=== PATIENT | male | born 1980 | race Caucasian/White ===

== ENCOUNTER 2022-03-01 09:48 | Emergency (ER) | payer SELFPAY ==
--- NOTE | 2022-03-01 | ECG_ITS ---
Test Reason : CHEST PAIN Blood Pressure : / mmHG Vent. Rate : 077 BPM Atrial Rate : 077 BPM P-R Int : 172 ms QRS Dur : 098 ms QT Int : 372 ms P-R-T Axes : 063 094 074 degrees QTc Int : 420 ms Normal sinus rhythm Rightward axis ST elevation consider inferolateral injury or acute infarct ACUTE OK / STEMI Abnormal ECG No previous ECGs available Referred By: Barrett Bean Electronically Signed By:Linwood Cantu
--- NOTE | ~2022-03-01 | XR_ITS ---
EXAMINATION: XR CHEST CLINICAL INFORMATION: Chest pain COMPARISON: None TECHNIQUE: 2 views of the chest were obtained. FINDINGS: No significant abnormality is noted involving the heart, lungs, mediastinum, bony thorax or soft tissues. XR/XR chest 2V IMPRESSION: Unremarkable examination.
[2022-03-01 09:52] VITALS: BP 130/80; PULSE 76; RESP 16; TEMP 36.4; O2SAT 100; BMI 21.7
[2022-03-01 10:06] LABS: MANUAL DIFF FLAG NO
[2022-03-01 10:08] LABS: Basophils Percent Auto 0.3 % (0-2); Eosinophils Absolute Auto 0.4 X10*3/uL (0.0-0.4); Eosinophils Percent Auto 4.2 % (0-4); Hematocrit 46.5 % (42.0-52.0); Hemoglobin 15.6 g/dl (14.0-18.0); Imm Gran Abs Auto 0.02 X10*3/uL (0.00-0.03); Imm Gran Pct Auto 0.2 % (0.0-0.4); Lymphocytes Absolute Auto 1.2 X10*3/uL (1.2-4.9); Mean Corpuscular HGB Conc 33.5 g/dl (31.0-36.0); Mean Corpuscular Hemoglobin 30.2 pg (27.0-33.0); Mean Corpuscular Volume 89.9 fL (80.0-98.0); Mean Platelet Volume 9.3 fL (9.4-12.4); Monocytes Absolute Auto 0.8 X10*3/uL (0.1-1.2); Monocytes Percent Auto 8.5 % (2-11); Neutrophils Absolute Auto 7.2 x10*3/uL (2.0-8.3); Neutrophils Percent Auto 74.8 % (45-73); Platelet Count 276 X10*3/uL (160-400); Red Blood Count 5.17 X10*6/uL (4.60-5.80); Red Cell Distribution Width 12.4 % (11.0-16.0); White Blood Count 9.6 X10*3/uL (4.8-10.8)
--- NOTE | 2022-03-01 10:15 | ED_ITS ---
HPI - Chest Pain General Chief Complaint: Chest Pain Stated Complaint: chest pain Time Seen by Provider: 03/01/22 10:06 Source: patient Limitations: no limitations History of Present Illness HPI narrative: This is a 41-year-old male complains of chest pain across his upper chest that began last night around the time he was going to bed. The patient said the pain was not severe but was ?annoying? and caused him to have difficulty sleeping. Said the pain is somewhat better now, is about a 1/10. He said it was never much more than that. He denies any shortness of breath. He denies any pain upon taking a deep breath. He denies any unusual exertion or lifting yesterday. He denies any nausea, sweats, radiation of pain to his arm or back. He has no family history of myocardial infarction. He has no history of diabetes mellitus , hypertension, elevated cholesterol. He is not a smoker. Related Data Previous Rx's Medication Instructions Recorded ibuprofen 800 mg tablet 800 mg PO Q8H #30 tab 03/01/22 Allergies Allergy/AdvReac Type Severity Reaction Status Date / Time No Known Allergies Allergy Verified 10/26/20 14:41 Review of Systems Review of Systems: Yes all other systems are reviewed and are negative Constitutional: Constitutional: Reports as per HPI and Denies fever(s) Eyes: Eyes: Reports no additional eye complaints ENT: Reports system reviewed and no additional complaints, except as documented Cardiovascular: Cardiovascular: Reports as per HPI, Denies palpitations and Denies dyspnea Respiratory: Respiratory: Reports as per HPI and Denies dyspnea Gastrointestinal: Gastrointestinal: Denies nausea Genitourinary: Genitourinary: Reports no additional male genitourinary complaints Musculoskeletal: Musculoskeletal: Reports no additional musculoskeletal complaints Integumentary/Breasts: Skin/Breast: Reports system reviewed and no additional complaints, except as docu and Reports other (No sweats) Neurologic: Reports system reviewed and no additional complaints, except as documented Endocrine: Endocrine: Denies palpitations PMFSH Past Medical History Medical History (Updated 03/01/22 @ 16:05 by Barrett Bean MD) No known health problems Social History Social History Smoked in Last 30 Days: No Use of substances other than those prescribed or required for medical reasons: No Advance Directives: No Advance Directives Information Provided: No Physical Exam Vital Signs: Vital Signs: Last Vital Signs Temp 98.1 F 03/01/22 15:16 Pulse 78 03/01/22 15:16 Resp 20 03/01/22 15:16 BP 120/73 03/01/22 15:16 Pulse Ox 99 03/01/22 15:16 BMI result Body Mass Index 21.7 Const: General: cooperative and healthy appearing Orientation/consciousness: patient oriented x3 HEENT: Head: Yes normal to inspection Eyes: General: appearance normal, both eyes and all related structures Chest: Chest palpation & inspection: normal inspection of the chest, normal palpation of entire chest wall and no tenderness Resp: Effort & Inspection: normal respiratory effort Auscultation: clear to auscultation bilaterally Cardio: Rate: regular rate Rhythm: regular rhythm Heart sounds: S1 normal heart sound present, S2 normal heart sound present, no gallops, no murmurs and no rubs GI: Inspection: Yes normal to inspection and No obesity Palpation (GI): Soft to palpation and nontender Skin: Other: Warm and dry Neuro: General: patient oriented x3 MDM - Chest Pain MDM Narrative Medical decision making narrative: Patient with pain in his upper chest, which began last night and continued mildly all night long, keeping him up. No radiation of the pain. No associated nausea, sweats, shortness of breath. No risk factors for coronary artery disease. Patient denied cocaine use, appeared well clinically, is not overweight. EKG showed diffuse ST elevation, concave upward, raising concern for STEMI, however the appearance in my opinion appear to be more consistent with pericarditis. Troponin x2 were negative. EKG was unchanged upon repeat exam. Chest x-ray was negative. Patient had a stat echocardiogram done as recommended by Dr. Kennedy of Cardiology. I also had spoken to the interventional cardiology team at [facility], who reviewed the EKGs, and felt that evaluation with the echocardiogram here would be ap propriate. Echo was normal. Dr. Kennedy has evaluated the patient in the ED and believes the patient likely has pericarditis and is safe for outpatient treatment, with ibuprofen. Lab Data Attestation: I reviewed the patient's lab results. Result diagrams: 03/01/22 10:01 03/01/22 10:01 Labs: Lab Results 03/01/22 03/01/22 03/01/22 Range/Units 10:01 10:01 10:01 WBC 9.6 (4.8-10.8) X10*3/uL RBC 5.17 (4.60-5.80) X10*6/uL Hgb 15.6 (14.0-18.0) g/dl Hct 46.5 (42.0-52.0) % MCV 89.9 (80.0-98.0) fL MCH 30.2 (27.0-33.0) pg MCHC 33.5 (31.0-36.0) g/dl RDW 12.4 (11.0-16.0) % Plt Count 276 (160-400) X10*3/uL MPV 9.3 L (9.4-12.4) fL Immature Gran % (Auto) 0.2 (0.0-0.4) % Neut % (Auto) 74.8 H (45-73) % Lymph % (Auto) 12.0 L (20-40) % [place] % (Auto) 8.5 (2-11) % Eos % (Auto) 4.2 H (0-4) % Baso % (Auto) 0.3 (0-2) % Lymph # (Auto) 1.2 (1.2-4.9) X10*3/uL [place] # (Auto) 0.8 (0.1-1.2) X10*3/uL Eos # (Auto) 0.4 (0.0-0.4) X10*3/uL Baso # (Auto) 0.0 (0.0-0.2) X10*3/uL Abs Immat Gran (auto) 0.02 (0.00-0.03) X10*3/uL Absolute Neuts (auto) 7.2 (2.0-8.3) x10*3/uL Absolute Nucleated RBC 0.000 (0.0-0.012) X10*3/uL Nucleated RBC % (auto) 0.0 (0.0-0.2) /100WBC D-Dimer High Sensitivty NG/ML Sodium 138 (135-145) mmol/L Potassium 4.5 (3.3-5.1) mmol/L Chloride 105 (96-108) mmol/L Carbon Dioxide 29 (22-29) mmol/L Anion Gap 9 L (12-20) BUN 10 (9-16) mg/dL Creatinine 0.92 (0.5-1.4) mg/dL Estim Creat Clear Calc 110.7 Estimated GFR > 60 Random Glucose 98 (60-115) mg/dL Calcium 9.5 (8.4-10.2) mg/dL Troponin I High Sens 15.1 (<3.5-35.0) ng/L 03/01/22 03/01/22 Range/Units 10:21 11:34 WBC (4.8-10.8) X10*3/uL RBC (4.60-5.80) X10*6/uL Hgb (14.0-18.0) g/dl Hct (42.0-52.0) % MCV (80.0-98.0) fL MCH (27.0-33.0) pg MCHC (31.0-36.0) g/dl RDW (11.0-16.0) % Plt Count (160-400) X10*3/uL MPV (9.4-12.4) fL Immature Gran % (Auto) (0.0-0.4) % Neut % (Auto) (45-73) % Lymph % (Auto) (20-40) % [place] % (Auto) (2-11) % Eos % (Auto) (0-4) % Baso % (Auto) (0-2) % Lymph # (Auto) (1.2-4.9) X10*3/uL [place] # (Auto) (0.1-1.2) X10*3/uL Eos # (Auto) (0.0-0.4) X10*3/uL Baso # (Auto) (0.0-0.2) X10*3/uL Abs Immat Gran (auto) (0.00-0.03) X10*3/uL Absolute Neuts (auto) (2.0-8.3) x10*3/uL Absolute Nucleated RBC (0.0-0.012) X10*3/uL Nucleated RBC % (auto) (0.0-0.2) /100WBC D-Dimer High Sensitivty < 150 NG/ML Sodium (135-145) mmol/L Potassium (3.3-5.1) mmol/L Chloride (96-108) mmol/L Carbon Dioxide (22-29) mmol/L Anion Gap (12-20) BUN (9-16) mg/dL Creatinine (0.5-1.4) mg/dL Estim Creat Clear Calc Estimated GFR Random Glucose (60-115) mg/dL Calcium (8.4-10.2) mg/dL Troponin I High Sens 15.6 (<3.5-35.0) ng/L Imaging Data Chest x-ray: Radiologist's impression: IMPRESSION: Unremarkable examination. ECG Data ECG #1: Attestation: I personally reviewed and interpreted this ECG as follows: ECG interpretation date: 03/01/22 ECG interpretation time: 09:57 Prior ECG tracings: not available for review Interpretation: Sinus rhythm with a rate of 77. Concave upward ST elevation in lead V2 through V6, consistent with early repolarization. J-point elevation in leads 2 3 and AVF with associated slight ST elevation. Slight AL depression noted in leads 2 3 and AVF. Right axis deviation. T-wave inversion lead aVL. ECG #2: ECG interpretation date: 03/01/22 ECG interpretation time: 11:38 Interpretation: Sinus rhythm with a rate of 75. ST elevation diffusely, concave upward in the anterior leads. Apparent J-point elevation in leads 2 and AVF with AL depression noted especially in lead 2 and 3 in AVF. More subtle AL depression n oted in the anterior leads. EKG appears unchanged from prior 1 today. Discharge Plan Discharge Clinical Impression: Acute pericarditis Patient Disposition: Home, Self-Care Instructions: Acute Pericarditis (ED) Additional Instructions: Use ibuprofen as prescribed. Follow with your primary care physician, or with Dr. Kennedy if he advised follow-up with him. Return for any new or worse nargis symptoms such as shortness of breath, worsening chest pain, dizzy spells or fainting episodes. Prescriptions: New ibuprofen 800 mg tablet 800 mg PO Q8H Qty: 30 0RF
[2022-03-01 10:19] VITALS: BP 110/68; PULSE 76; RESP 16; O2SAT 100
[2022-03-01] MEDS: Aspirin 81 MG TAB.CHEW 324 MG PO (10:19)
[2022-03-01 10:34] LABS: Anion Gap 9 (12-20); Blood Urea Nitrogen 10 mg/dL (9-16); Calcium 9.5 mg/dL (8.4-10.2); Carbon Dioxide 29 mmol/L (22-29); Chloride 105 mmol/L (96-108); Creatinine Clr Calc Pharmacy 110.7; Estimated Glomerular Filt Rate > 60; Glucose Random 98 mg/dL (60-115); Potassium 4.5 mmol/L (3.3-5.1); Sodium 138 mmol/L (135-145)
[2022-03-01 10:36] LABS: Troponin-I High Sensitivity 15.1 ng/L (<3.5-35.0)
[2022-03-01 10:51] LABS: D Dimer High Sensitivity < 150 NG/ML
--- NOTE | 2022-03-01 11:29 | ECG_ITS ---
Test Reason : REPEAT Blood Pressure : / mmHG Vent. Rate : 075 BPM Atrial Rate : 075 BPM P-R Int : 174 ms QRS Dur : 096 ms QT Int : 368 ms P-R-T Axes : 054 093 070 degrees QTc Int : 410 ms Normal sinus rhythm Rightward axis ST elevation that could be from pericarditis Abnormal ECG No previous ECGs available Referred By: Barrett Bean Electronically Signed By:PARAG KAN
[2022-03-01 12:07] LABS: Troponin-I High Sensitivity 15.6 ng/L (<3.5-35.0)
--- NOTE | 2022-03-01 12:12 | CA_ITS ---
Transthoracic Echocardiogram Patient (Last, First, Middle): Wilman Hyatt, Gender: Male Date of : 1980 Age: 41 Procedure Date: 03/01/2022 Procedure Type: Transthoracic Echocardiogram Location: ER Height: 185.42 cm Weight: 74.84 kg BSA: 1.98 m2 Heart Rate: bpm BP: 122 / 77 mmHg [employer] Officer: TO Referring MD: Barrett Bean MD Symptoms: CP abn EKG Study Quality: Good ECG Rhythm: Sinus Conclusions: - The left ventricular systolic function is normal. The calculated ejection fraction is 60% by biplane method. - No obvious valvular pathology seen on this study. Findings Left Ventricle Normal left ventricular cavity size. There is normal left ventricular wall thickness. The left ventricular systolic function is normal. The calculated ejection fraction is 60% by biplane method. There is no evidence of regional wall motion abnormalities. Diastolic function is normal for age. Right Ventricle Normal right ventricular cavity size and systolic function. Atria Both atria are normal in size. Aortic Valve The aortic valve was not well visualized. There is no aortic valve stenosis. There is no aortic valve regurgitation. Mitral Valve The mitral valve appears normal. There is no mitral valve regurgitation. There is no mitral valve stenosis. Pulmonic Valve The pulmonic valve was not well visualized. Tricuspid Valve Normal tricuspid valve structure. There is no tricuspid valve regurgitation. The right ventricular systolic pressure may be underestimated. Great Vessels The aortic annulus, sinuses of valsalva, and asc aorta are normal in size. Venous The inferior vena cava is normal in size and collapses greater than 50% with inspiration. Pericardium/Pleural There is no evidence of pericardial effusion. Prior Study Comparison No prior study available for comparison. Recommendations, Care & Conclusions No obvious valvular pathology seen on this study. Measurements 2D Linear Measurements IVSd: 0.83 0.6-0.9/0.6-1.0 cm LVIDd: 4.92 3.9-5.3/4.2-5.9 cm LVIDd Index: 2.48 2.4-3.2/2.2-3.1 cm/m2 LVIDs: 2.96 2.0-3.6 cm LVPWd: 0.85 0.7-1.1 cm LA Diam: 2.70 2.7-3.8/3.0-4.0 cm LAIDs Index: 1.36 1.5-2.3 cm/m2 LV Mass: 174.59 67-162/88-224 g LV Mass Index: 88.18 43-95/49-115 g/m2 LVOT Diam: 2.20 3.0+(-)1.3 cm 2D Systolic Function EF 4C: 55.30 >55% EF 2C: 62.40 >55% EF BiP: 60.00 >55% Mitral Valve MV Pk E: 0.58 MV PK A: 0.48 MV Decel Time: 198.00 E/A: 1.20 E'Lateral: 18.40 E'Medial: 11.50 E/E' Med: 5.10 E/E' Lat: 3.20 PHT: 58.00 MVA PHT: 3.79 Decel Orange: 2.94 Aortic Valve AoV Pk Ric: 1.42 AoV Mn Ric: 0.98 AoV VTI: 0.27 AoV Pk Grad: 8.00 Aov Mn Grad: 4.00 PAUL Cont.VTI: 2.85 LVOT LVOT Pk Ric: 1.07 LVOT Mn Ric: 0.74 LVOT VTI: 0.20 LVOT Pk Grad: 5.00 LVOT Mn Grad: 3.00 LVOT Diam: 2.20 LVOT Area: 3.80 Diastolic Function MV Pk E: 0.58 MV Pk A: 0.48 E/A: 1.20 E'Medial: 11.50 E/E' Med: 5.10 E' Laterial: 18.40 E/E' Lat: 3.20 Right Ventricle TAPSE (mm): 25.20 TVS' Ric: 12.60 Tricuspid Valve RA Press: 3.00 Great Vessels Aorta Sinus of Valsalva: 3.45 2.0-3.[address] [place]: 2.62 1.7-3.4 cm Ao Asc: 3.60 2.1-3.4 cm Updated in Other Vendor System with Status of Final Bhavesh Kennedy MD electronically signed on 03/01/2022 3:34:35 PM with status of Final
--- NOTE | 2022-03-01 12:19 | PC.NURSE ---
This US places four separate calls to [facility] per verbal order of Dr. Bean to consult Percher. Calls placed [phone]. Final call connects Dr. Bean with Interventional registered medical transcriptionist, who takes down call back number for a fourth time and states they will have the Truck Service Manager call back soon .
--- NOTE | 2022-03-01 12:26 | PC.NURSE ---
Radiation Oncology Therapist calls back @ [phone]
[2022-03-01 15:16] VITALS: BP 120/73; PULSE 78; RESP 20; TEMP 36.7; O2SAT 99
--- NOTE | 2022-03-01 15:50 | PM.CNCAR ---
History of Present Illness History of Present Illness Date of Service: 03/01/22 Chief complaint: chest pain Narrative: This is a cardiology consultation regarding chest pain. Patient states that he is generally very healthy without any cardiac issues or in fact any major medical issues at all. He is quite active without limitations. Last night, he started noticing some discomfort in the upper part of the chest and in the shoulder area. He describes rather as a pain in his ' bones' as opposed to chest pain. No clear radiation to the upper extremities or anywhere else. Not short of breath. He stated that he felt better standing up than lying down. No other symptoms. Not short of breath. No palpitations or dizzy spells or syncopal episodes. Otherwise since coming to ER is actually feeling better. Review of Systems Review of Systems: Yes all other systems are reviewed and are negative Constitutional: Constitutional: Reports as per HPI Eyes: Eyes: Reports as per HPI ENT: Reports as per HPI Cardiovascular: Cardiovascular: Reports as per HPI, Denies acrocyanosis, Denies cool extremities, Reports chest pain, Denies leg edema, Denies lightheadedness, Denies palpitations and Denies dyspnea Respiratory: Respiratory: Reports as per HPI, Reports no additional respiratory complaints and Denies dyspnea Gastrointestinal: Gastrointestinal: Reports as per HPI and Reports no additional gastrointestinal complaints Genitourinary: Genitourinary: Reports no additional male genitourinary complaints and Reports as per HPI Musculoskeletal: Musculoskeletal: Reports no additional musculoskeletal complaints and Reports as per HPI Integumentary/Breasts: Skin/Breast: Reports system reviewed and no additional complaints, except as docu Neurologic: Reports system reviewed and no additional complaints, except as documented and Reports as per HPI Psychiatric: Psychiatric: Reports no additional psychiatric complaints and Reports as per HPI Endocrine: Endocrine: Reports no additional endocrine complaints, Reports as per HPI and Denies palpitations Hematologic/Lymphatic: Hematologic/Lymphatic: Reports no additional hematologic/lymphatic complaints and Reports as per HPI Allergic/Immunologic: Allergic/Immunologic: Reports no additional allergic/immunologic complaints and Reports as per HPI [facility] Past Medical History Medical History (Updated 03/01/22 @ 15:56 by Bhavesh Kennedy MD) No known health problems Family History Pertinent family history: Patient states there is no significant cardiac issues or in fact any major medical issues in his family members. Social History Social History Smoked in Last 30 Days: No Use of substances other than those prescribed or required for medical reasons: No Advance Directives: No Advance Directives Information Provided: No Meds Allergies Allergy/AdvReac Type Severity Reaction Status Date / Time No Known Allergies Allergy Verified 10/26/20 14:41 Home Medications Medication Instructions Recorded Confirmed Last Taken Type No Known Home Meds 10/26/20 Unknown History Physical Exam Vital Signs: Vital Signs: Last Vital Signs Temp 98.1 F 03/01/22 15:16 Pulse 78 03/01/22 15:16 Resp 20 03/01/22 15:16 BP 120/73 03/01/22 15:16 Pulse Ox 99 03/01/22 15:16 BMI result Body Mass Index 21.7 Const: General: comfortable and no acute distress Orientation/consciousness: patient oriented x3 HEENT: Other: Unremarkable Head: Yes normal to inspection Neck: Neck: Yes normal visual inspection Chest: Chest palpation & inspection: normal inspection of the chest Resp: Auscultation: clear to auscultation bilaterally Cardio: Palpation: normal PMI Heart sounds: S1 normal heart sound present, S2 normal heart sound present, no gallops, no murmurs and no rubs GI: Palpation (GI): Soft to palpation Back/Spine/Pelvis: Other: unremarkable Skin: General skin exam: no rashes or lesions noted Neuro: General: patient oriented x3 Extrem: General: Yes normal to inspection Psych: Mental Status: mental status grossly normal Objective Labs and Meds Result diagrams: 03/01/22 10:01 03/01/22 10:01 Lab results: Laboratory Results - last 24 hr 03/01/22 03/01/22 03/01/22 10:01 10:01 10:01 WBC 9.6 RBC 5.17 Hgb 15.6 Hct 46.5 MCV 89.9 MCH 30.2 MCHC 33.5 RDW 12.4 Plt Count 276 MPV 9.3 L Immature Gran % (Auto) 0.2 Neut % (Auto) 74.8 H Lymph % (Auto) 12.0 L [place] % (Auto) 8.5 Eos % (Auto) 4.2 H Baso % (Auto) 0.3 Lymph # (Auto) 1.2 [place] # (Auto) 0.8 Eos # (Auto) 0.4 Baso # (Auto) 0.0 Abs Immat Gran (auto) 0.02 Absolute Neuts (auto) 7.2 Absolute Nucleated RBC 0.000 Nucleated RBC % (auto) 0.0 D-Dimer High Sensitivty Sodium 138 Potassium 4.5 Chloride 105 Carbon Dioxide 29 Anion Gap 9 L BUN 10 Creatinine 0.92 Estim Creat Clear Calc 110.7 Estimated GFR > 60 Random Glucose 98 Calcium 9.5 Troponin I High Sens 15.1 03/01/22 03/01/22 10:21 11:34 WBC RBC Hgb Hct MCV MCH MCHC RDW Plt Count MPV Immature Gran % (Auto) Neut % (Auto) Lymph % (Auto) [place] % (Auto) Eos % (Auto) Baso % (Auto) Lymph # (Auto) [place] # (Auto) Eos # (Auto) Baso # (Auto) Abs Immat Gran (auto) Absolute Neuts (auto) Absolute Nucleated RBC Nucleated RBC % (auto) D-Dimer High Sensitivty < 150 Sodium Potassium Chloride Carbon Dioxide Anion Gap BUN Creatinine Estim Creat Clear Calc Estimated GFR Random Glucose Calcium Troponin I High Sens 15.6 ECG Interpretation: In the initial EKG, underlying rhythm is sinus. There is slight ST [id number] elevation type in the inferior leads. No clear reciprocal changes. This EKG is not in expanse. In the subsequent EKG, no significant progression. Imaging Radiologist's impression: Impressions Chest X-Ray 03/01/22 11:30 IMPRESSION: Unremarkable examination. Assessment and Plan (1) Precordial chest pain: Status: Acute (2) Acute pericarditis: Status: Acute Plan Available data reviewed. Chest x-ray reported to be unremarkable without any significant abnormality. CBC shows hemoglobin of 15.6, white cells 9.6 and platelets 276. There is slight increase in neutrophils. Lymphocyte count diminished. Eosinophils marginally high. Renal function is unremarkable. High sensitivity troponins are 15.1 and 15.6. Echocardiogram with preserved LVEF, no wall motion abnormalities or valvular issues. There is no significant pericardial effusion. Overall, possible pericarditic picture. We would also check for COVID. Otherwise, can treat with NSAIDs. Follow-up in a few weeks time. Also advised patient to return to the ER if symptoms get worse but he states that he is already feeling better. Total time spent including review of records, discussion with ER physician, documentation coordination of care-70 minutes. Procedures Date of Service Date of Service: 03/01/22
[2022-03-01] MEDS: Ibuprofen 800 MG TABLET PO (15:58)
[2022-03-01 16:13] LABS: COVID-19 Test Negative (Negative); IDNOW Serial# 16C4AD1C
== END 2022-03-01 16:24 | disposition home or self-care (01) ==
PROVIDERS: Emergency Provider Emergency Medicine
DX: I30.9 Acute pericarditis, unspecified (principal); R07.2 Precordial pain; R07.89 Other chest pain; Z20.822 Contact with and (suspected) exposure to COVID-19; Z79.899 Other long term (current) drug therapy
CPT/HCPCS: 36415; 71046; 80048; 84484; 85025; 85379; 87635; 93005; 93306; 99284; 99285

== ENCOUNTER 2022-07-09 00:22 | Emergency (ER) | payer OTHER, SELFPAY ==
--- NOTE | ~2022-07-09 | XR_ITS ---
EXAMINATION: XR CHEST CLINICAL INFORMATION: Chest pain COMPARISON: 03/01/2022 TECHNIQUE: Frontal view of the chest was obtained. FINDINGS: The lungs are clear with no focal consolidation. No evidence of pneumothorax, pulmonary edema, or pleural effusions. The cardiomediastinal silhouette is unremarkable. No acute osseous findings. XR/XR chest 1V IMPRESSION: No acute cardiopulmonary findings.
--- NOTE | 2022-07-09 00:27 | ECG_ITS ---
Test Reason : CHEST PAIN Blood Pressure : / mmHG Vent. Rate : 060 BPM Atrial Rate : 060 BPM P-R Int : 180 ms QRS Dur : 102 ms QT Int : 426 ms P-R-T Axes : 058 091 077 degrees QTc Int : 426 ms Normal sinus rhythm Rightward axis Borderline ECG When compared with ECG of 01-MAR-2022 11:37, ST less elevated in Inferior leads Referred By: Batsheva Oconnell Electronically Signed By:HANH ESCOBAR
[2022-07-09 00:41] VITALS: BP 112/70; PULSE 74; RESP 16; TEMP 36.4; O2SAT 98; BMI 22.4
[2022-07-09 01:16] LABS: MANUAL DIFF FLAG NO
[2022-07-09 01:19] LABS: Basophils Absolute Auto 0.1 X10*3/uL (0.0-0.2); Basophils Percent Auto 0.6 % (0-2); Eosinophils Absolute Auto 0.2 X10*3/uL (0.0-0.4); Eosinophils Percent Auto 2.3 % (0-4); Hematocrit 40.1 % (42.0-52.0); Hemoglobin 13.3 g/dl (14.0-18.0); Imm Gran Abs Auto 0.03 X10*3/uL (0.00-0.03); Imm Gran Pct Auto 0.3 % (0.0-0.4); Lymphocytes Absolute Auto 1.4 X10*3/uL (1.2-4.9); Lymphocytes Percent Auto 14.3 % (20-40); Mean Corpuscular HGB Conc 33.2 g/dl (31.0-36.0); Mean Corpuscular Hemoglobin 28.5 pg (27.0-33.0); Mean Corpuscular Volume 86.1 fL (80.0-98.0); Mean Platelet Volume 9.3 fL (9.4-12.4); Monocytes Absolute Auto 0.5 X10*3/uL (0.1-1.2); Monocytes Percent Auto 5.5 % (2-11); Neutrophils Absolute Auto 7.6 x10*3/uL (2.0-8.3); Platelet Count 225 X10*3/uL (160-400); Red Blood Count 4.66 X10*6/uL (4.60-5.80); Red Cell Distribution Width 14.1 % (11.0-16.0); White Blood Count 9.9 X10*3/uL (4.8-10.8)
[2022-07-09 01:34] LABS: COVID-19 Test Negative (Negative)
[2022-07-09 01:36] LABS: Alanine Aminotransferase 48 U/L (0-40); Albumin Level 4.3 g/dL (3.5-5.0); Alkaline Phosphatase 64 U/L (39-117); Anion Gap 16 (12-20); Aspartate Amino Transferase 32 U/L (5-37); Bilirubin Total 1.7 mg/dL (0.0-1.0); Blood Urea Nitrogen 17 mg/dL (9-16); Calcium 8.7 mg/dL (8.4-10.2); Carbon Dioxide 25 mmol/L (22-29); Chloride 103 mmol/L (96-108); Creatinine Clr Calc Pharmacy 109.5; Estimated Glomerular Filt Rate > 60; Glucose Random 121 mg/dL (60-115); Potassium 4.1 mmol/L (3.3-5.1); Sodium 140 mmol/L (135-145); Total Protein 6.7 g/dL (6.5-8.0)
[2022-07-09 01:42] LABS: Troponin-I High Sensitivity 6.1 ng/L (<3.5-35.0)
[2022-07-09 01:57] LABS: Ethanol < 10 mg/dL; Lipase 30 U/L (8-78)
[2022-07-09 02:37] VITALS: BP 111/59; PULSE 77; RESP 12; TEMP 36.7; O2SAT 99
[2022-07-09 02:38] VITALS: PULSE 77
--- NOTE | 2022-07-09 02:57 | ED_ITS ---
HPI - Chest Pain General Chief Complaint: Chest Pain Stated Complaint: chest pain, trouble breathing Time Seen by Provider: 07/09/22 00:26 Source: patient Mode of arrival: ambulatory History of Present Illness HPI narrative: 41-year-old male with presentation for feeling epigastric/midsternal chest discomfort that was not sharp in nature but kind of ?dull? and he states that he felt like his breathing became shallow afterwards. This pain did not radiate anywhere, is gradually starting CIS subside, and was not associated with any dizziness/headache/diaphoresis/nausea. Patient denies that this pain felt similar to February when he was diagnosed with pericarditis. He denies any recent fever, chills, COVID-19 contact, new cough or sore throat. Patient denies any alcohol or drug use. Related Data Previous Rx's Medication Instructions Recorded ibuprofen 800 mg tablet 800 mg PO Q8H pain #30 tabs 03/01/22 omeprazole 20 mg capsule,delayed 20 mg PO DAILY #30 caps 07/09/22 release Allergies Allergy/AdvReac Type Severity Reaction Status Date / Time No Known Allergies Allergy Verified 10/26/20 14:41 Review of Systems Review of Systems: Pertinent positives and negatives as stated in HPI 10 point review of systems is otherwise negative. PMFSH Past Medical History Source: nursing notes reviewed Medical History No known health problems Social History Social History Advance Directives: No Advance Directives Information Provided: Yes Physical Exam Vital Signs: Vital Signs: Last Vital Signs Temp 98.1 F 07/09/22 02:37 Pulse 77 07/09/22 02:37 Resp 12 07/09/22 02:37 BP 111/59 L 07/09/22 02:37 Pulse Ox 99 07/09/22 02:37 O2 Del Method 07/09/22 02:37 BMI result Body Mass Index 22.4 VITAL SIGNS: Reviewed. GENERAL: Well developed, well nourished, in no acute distress. HEAD: Normocephalic/atraumaic, EYES: PERRLA, EOMI EARS: Ext canals without abnormality NOSE: Nares patent bilateral OROPHARYNX: no oral lesions noted, posterior pharynx clear NECK: Supple, no adenopathy LUNGS: Normal breath sounds. No adventitious sounds or accessory muscle use. SpO2<99>; CHEST WALL: There is no reproducible chest pain on palpation, no deformity, no crepitus CARDIOVASCULAR: Regular rate and rhythm without noted murmurs, no JVD or lower extremity edema. ABDOMEN: Soft, non-tender, non-distended with bowel sounds. MUSCULOSKELETAL: No tenderness, deformities, or effusions noted on gross inspection. EXTREMITIES: No cyanosis, clubbing or edema. SKIN: Inspection of the skin reveals no rashes NEUROLOGIC: Alert and oriented x 4. Strength and sensation to light touch were grossly intact x 4. Course Course Course Narrative: 41-year-old male with history and clinical presentation suggestive of possible acid reflux, no evidence to suggest pneumonia/cardiac etiology, on review of EKG there are no changes no clinical suspicion for PE and symptoms are beginning to resolve. Will repeat troponin as initial was detectable but not elevated, lipase is negative which is not suggest evidence of pancreatitis. Patient will receive a GI cocktail. On re-evaluation patient reports that he is feeling much better and serial troponins are flat. He is otherwise discharged home in stable condition with presumptive acid reflux, all results were discussed with him at bedside. MDM - Chest Pain Lab Data Result diagrams: 07/09/22 01:06 07/09/22 01:06 Labs: Lab Results 07/09/22 07/09/22 07/09/22 Range/Units 01:06 01:06 01:06 WBC 9.9 (4.8-10.8) X10*3/uL RBC 4.66 (4.60-5.80) X10*6/uL Hgb 13.3 L (14.0-18.0) g/dl Hct 40.1 L (42.0-52.0) % MCV 86.1 (80.0-98.0) fL MCH 28.5 (27.0-33.0) pg MCHC 33.2 (31.0-36.0) g/dl RDW 14.1 (11.0-16.0) % Plt Count 225 (160-400) X10*3/uL MPV 9.3 L (9.4-12.4) fL Immature Gran % (Auto) 0.3 (0.0-0.4) % Neut % (Auto) 77.0 H (45-73) % Lymph % (Auto) 14.3 L (20-40) % [place] % (Auto) 5.5 (2-11) % Eos % (Auto) 2.3 (0-4) % Baso % (Auto) 0.6 (0-2) % Lymph # (Auto) 1.4 (1.2-4.9) X10*3/uL [place] # (Auto) 0.5 (0.1-1.2) X10*3/uL Eos # (Auto) 0.2 (0.0-0.4) X10*3/uL Baso # (Auto) 0.1 (0.0-0.2) X10*3/uL Abs Immat Gran (auto) 0.03 (0.00-0.03) X10*3/uL Absolute Neuts (auto) 7.6 (2.0-8.3) x10*3/uL Absolute Nucleated RBC 0.000 (0.0-0.012) X10*3/uL Nucleated RBC % (auto) 0.0 (0.0-0.2) /100WBC Sodium 140 (135-145) mmol/L Potassium 4.1 (3.3-5.1) mmol/L Chloride 103 (96-108) mmol/L Carbon Dioxide 25 (22-29) mmol/L Anion Gap 16 (12-20) BUN 17 H D (9-16) mg/dL Creatinine 0.93 (0.5-1.4) mg/dL Estim Creat Clear Calc 109.5 Estimated GFR > 60 Random Glucose 121 H (60-115) mg/dL Calcium 8.7 D (8.4-10.2) mg/dL Total Bilirubin 1.7 H (0.0-1.0) mg/dL AST 32 (5-37) U/L ALT 48 H (0-40) U/L Alkaline Phosphatase 64 (39-117) U/L Troponin I High Sens 6.1 D (<3.5-35.0) ng/L Total Protein 6.7 (6.5-8.0) g/dL Albumin 4.3 (3.5-5.0) g/dL Lipase 30 (8-78) U/L Ethyl Alcohol < 10 mg/dL COVID-19 ([facility]) (Negative) COVID-19 Clin Com 07/09/22 07/09/22 Range/Units 01:06 03:19 WBC (4.8-10.8) X10*3/uL RBC (4.60-5.80) X10*6/uL Hgb (14.0-18.0) g/dl Hct (42.0-52.0) % MCV (80.0-98.0) fL MCH (27.0-33.0) pg MCHC (31.0-36.0) g/dl RDW (11.0-16.0) % Plt Count (160-400) X10*3/uL MPV (9.4-12.4) fL Immature Gran % (Auto) (0.0-0.4) % Neut % (Auto) (45-73) % Lymph % (Auto) (20-40) % [place] % (Auto) (2-11) % Eos % (Auto) (0-4) % Baso % (Auto) (0-2) % Lymph # (Auto) (1.2-4.9) X10*3/uL [place] # (Auto) (0.1-1.2) X10*3/uL Eos # (Auto) (0.0-0.4) X10*3/uL Baso # (Auto) (0.0-0.2) X10*3/uL Abs Immat Gran (auto) (0.00-0.03) X10*3/uL Absolute Neuts (auto) (2.0-8.3) x10*3/uL Absolute Nucleated RBC (0.0-0.012) X10*3/uL Nucleated RBC % (auto) (0.0-0.2) /100WBC Sodium (135-145) mmol/L Potassium (3.3-5.1) mmol/L Chloride (96-108) mmol/L Carbon Dioxide (22-29) mmol/L Anion Gap (12-20) BUN (9-16) mg/dL Creatinine (0.5-1.4) mg/dL Estim Creat Clear Calc Estimated GFR Random Glucose (60-115) mg/dL Calcium (8.4-10.2) mg/dL Total Bilirubin (0.0-1.0) mg/dL AST (5-37) U/L ALT (0-40) U/L Alkaline Phosphatase (39-117) U/L Troponin I High Sens 6.3 (<3.5-35.0) ng/L Total Protein (6.5-8.0) g/dL Albumin (3.5-5.0) g/dL Lipase (8-78) U/L Ethyl Alcohol mg/dL COVID-19 ([facility]) Negative (Negative) COVID-19 Clin Com See Note Discharge Plan Discharge Clinical Impression: Atypical chest pain, Acid reflux Patient Disposition: Home, Self-Care Instructions: Diet for Stomach Ulcers and Gastritis (ED), Gastroesophageal Re flux Disease (ED), Indigestion (ED) Additional Instructions: 1. Recommend that you follow the dietary recommendations in the informational packet that you receive. 2. Please follow-up with your primary care provider by setting up an appointment for re-evaluation. Return to the ER for worsening symptoms. Prescriptions: New omeprazole 20 mg capsule,delayed release(DR/EC) 20 mg PO DAILY Qty: 30 0RF No Action ibuprofen 800 mg tablet 800 mg PO Q8H Qty: 30 0RF Referrals: Chi Mcgee MD [Primary Care Provider] -
[2022-07-09] MEDS: Magnesium Hydrox/Alum Hydrox 30 ML ORAL.SUSP PO (03:33)
[2022-07-09] MEDS: Lidocaine HCl Viscous 2 % 15 ML SOLUTION 10 ML MUCOUS MEM (03:33)
[2022-07-09 03:44] LABS: Troponin-I High Sensitivity 6.3 ng/L (<3.5-35.0)
[2022-07-09 03:57] VITALS: BP 104/64; PULSE 71; RESP 16; TEMP 36.9; O2SAT 98
[2022-07-09 03:58] LABS: Amphetamine Screen Urine Not Detected (Not Detect); Barbiturates, Urine Not Detected (Not Detect); Benzodiazepines Screen Urine Not Detected (Not Detect); Cannabinoid Screen Urine POSITIVE (Not Detect); Cocaine Screen Urine Not Detected (Not Detect); Fentanyl, urine Not Detected (Not Detect); Opiate Screen Urine Not Detected (Not Detect); Phencyclidine Screen Urine Not Detected (Not Detect)
== END 2022-07-09 04:13 | disposition home or self-care (01) ==
PROVIDERS: Emergency Provider Student in an Organized Health Care Education/Training Program; PCP Internal Medicine
DX: R07.89 Other chest pain (principal); K21.9 Gastro-esophageal reflux disease without esophagitis; Z20.822 Contact with and (suspected) exposure to COVID-19; Z79.899 Other long term (current) drug therapy
CPT/HCPCS: 36415; 71045; 80053; 80307; 82077; 83690; 84484; 85025; 87635; 93005; 99283; 99285

== ENCOUNTER 2023-10-07 10:18 | Outpatient (AMB) | payer OTHER, SELFPAY ==
[2023-10-07 10:25] VITALS: BP 100/70; PULSE 64; O2SAT 96; BMI 23.2
--- NOTE | 2023-10-07 10:25 | A.OFFPC_ITS ---
Vital Signs 10/07/23 10:25 Height 6 ft Weight 171 lb 6 oz BMI 23.2 BP 100/70 Blood Pressure Location Lt brachial Position Sitting Pulse 64 Pulse Source Pulse Oximeter Pulse Oximetry (%) 96 Oxygen Delivery Method Room Air Intake Visit Reasons: PE Quality Assurance Technician Required: No Accompanied by: Self / Same As Patient Allergies No Known Allergies Allergy (Verified 10/07/23 10:35) Medication List - Last Reconciled 10/07/23 by Chi Mcgee MD ibuprofen 800 mg PO Q8H omeprazole 20 mg PO DAILY Tobacco use date assessed: 10/07/23 Dental Screening Dental Screen Date: 10/07/23 Did you have a dental visit in the last 12 months?: Yes Did you have a dental problem in the last 6 months where you did not have access to dental care?: No Was dental information given to patient?: Patient has dentist HPI PE HPI Details Patient comes in today for his annual physical examination States that he feels okay Thinks that he had a mild case of shingles about a month ago - had some lesions and pain over his left chest wall area and left upper back States that the lesions and symptoms have since cleared up and no longer bothers him He continues to have trouble sleeping at night and is smoking marijuana at times to help him sleep - states that it only helps sometimes Has tried OTC Melatonin previously upon our recommendations but states that they did not help at all He denies any headaches or dizziness Denies any chest pains, no SOB No nausea/vomiting, no abdominal pain No change in bowel habits noted Denies any acute urinary symptoms PFSH Medical History Insomnia Lyme disease History of pericarditis Surgical History Hx of colonoscopy Social History (Updated 10/07/23 @ 10:53 by Chi Mcgee MD) Housing: Apartment Patient Tobacco Use Status: Never used Tobacco e-Cigarette/Vaping Use: Never Used Second Hand Smoke Exposure: No Substance Use Type: Marijuana service: No Current occupational status: other Current occupation: Self Employed. Cognitive needs: No Hearing needs: No Vision needs: No Questionnaire PHQ-9 Over the last 2 weeks, how often have you been bothered by any of the following problems? 1. Little interest or pleasure in doing things: not at all 2. Feeling down, depressed, or hopeless: not at all 3. Trouble falling or staying asleep, or sleeping too much: not at all 4. Feeling tired or having little energy: not at all 5. Poor appetite or overeating: not at all 6. Feeling bad about yourself - or that you are a failure or have let yourself or your family down: not at all 7. Trouble concentrating on things, such as reading the newspaper or watching television: not at all 8. Moving or speaking so slowly that other people could have noticed. Or the opposite - being so fidgety or restless that you have been moving around a lot more than usual: not at all 9. Thoughts that you would be better off or of hurting yourself in some way: not at all Total score: 0 Depression Screening Interpretation: Negative Depression Screening Done: Yes 24311 - PHQ-9 Billing: Yes Source: Developed by Drs. Pool Tang, Monica Coates, Aden Hunter and colleagues, with an educational jenn from [employer]. Thrive Questionnaire Date Thrive assessed: 10/07/23 I am a: Patient What is your living situation today?: I have a steady place to live Within the past 12 months, did the food you bought not last and you didn't have the money to get more?: Never true Within the past 12 months, did you worry whether your food would run out before you got money to buy more?: Never true Do you have trouble paying for medicines?: No Do you have trouble getting transportation to medical appointments?: No Do you have trouble paying your heating and electricity bill?: No Do you have trouble taking care of your child, family member or friend?: No Do you have trouble with day-to-day activities such as bathing, preparing meals, shopping, managing finances, etc.?: No Are you currently unemployed and looking for a job?: No Are you interested in more education?: No Please select the resources that you would like help with: None Currently or been in a relationship where the following occur: no concerns reported AUDIT C Alcohol Use Questionnaire (AUDIT-C) 1. How often do you have a drink containing alcohol?: Never Total Score: 0 Score Reviewed/Action Taken: Yes LIGIA-7 AMB Questionnaire LIGIA-7 Date LIGIA - 7 assessed: 10/07/23 Feeling nervous, anxious, or on edge: 0 = Not at all Not being able to stop or control worryin = Not at all Worrying too much about different things: 0 = Not at all Trouble relaxin = Not at all Being so restless that it is hard to sit still: 0 = Not at all Becoming easily annoyed or irritable: 0 = Not at all Feeling afraid as if something awful might happen: 0 = Not at all Total LIGIA-7 score (0-4 normal; 5-9 mild; 10-14 moderate; 15-21 severe): 0 Source: Developed by Drs. Pool Tang, Monica Coates, Aden Hunter and colleagues, with an educational jenn from [employer]. Review of Systems Const Denies chills, Reports difficulty sleeping, Denies fatigue, Denies fever(s), Denies headache(s), Denies malaise and Denies weakness Eyes Denies blurry vision, Denies change in vision, Denies irritation and Denies itchy eyes ENT Denies dysphagia, Denies dizziness, Denies otalgia, Denies headache(s), Denies nasal congestion, Denies neck pain, Denies odynophagia and Denies sore throat Card Denies chest pain, Denies rapid heart rate, Denies irregular heart rhythm, Denies palpitations and Denies dyspnea Resp Denies chest congestion, Denies cough, Denies dyspnea and Denies wheezing GI Denies abdominal pain, Denies bloating, Denies constipation, Denies dysphagia, Denies heartburn, Denies diarrhea, Denies nausea, Denies odynophagia and Denies vomiting Denies hematuria, Denies difficulty urinating, Denies dysuria, Denies urinary frequency and Denies urinary urgency Musc Denies back pain, Denies arthralgias, Denies joint swelling, Denies muscle weakness and Denies neck pain Skin/Breast Details: (+) few faint residual scars/lesions on the left mid thoracic area from his bout with shingles a few months ago Denies change in pigmentation, Denies rash and Denies unusual bruising Neuro Denies dizziness, Denies headache(s), Denies paresthesias and Denies weakness Endo Denies fatigue and Denies palpitations Aller/Immun Denies itchy eyes and Denies wheezing Physical exam (Primary Care) Vital Signs: Last Vital Signs Pulse 64 10/07/23 10:25 BP 100/70 10/07/23 10:25 Pulse Ox 96 10/07/23 10:25 Oxygen Delivery Method Room Air 10/07/23 10:25 BMI result Body Mass Index 23.2 Tobacco/Smoking Status: Tobacco use Status Tobacco use date assessed 10/07/23 10/07/23 10:30 Patient Tobacco Use Status Never used Tobacco 10/07/23 10:30 Tobacco use type 10/06/22 21:53 e-Cigarette/Vaping Use Never Used 10/07/23 10:30 PHQ-9: PHQ-9 Score PHQ-9: Total score 0 10/07/23 10:30 Depression Screening Interpretation: Negative Thrive Assessment: Date of Thrive Assessment Date Thrive assessed 10/07/23 10/07/23 10:30 Currently or been in a relationship where the following occur: no concerns reported Const General: no acute distress, alert and awake Orientation/consciousness: patient oriented x3 HENMT Head: Yes normocephalic and Yes atraumatic Ears: external ears normal, TM's normal bilaterally and EAC's normal General nose exam: No nasal discharge present Face and sinus: Yes normal facial exam and Yes sinuses nontender Teeth and gingiva: dentition normal Throat: Yes posterior oropharynx normal and Yes tonsils normal (no TP congestion) Eyes Eyelids: Yes eyelids normal Conjunctivae: conjunctivae normal Pupils: Equal, round and reactive pupils present EOM: EOMs intact bilaterally Neck Neck: Yes no lymphadenopathy and Yes supple Thyroid: Thyroid normal Resp Auscultation: clear to auscultation bilaterally, no rales and no wheezes Cardio Rate: regular rate Rhythm: regular rhythm Heart sounds: no murmurs GI Palpation (GI): Soft to palpation, nontender and No hepatosplenomegaly present Auscultation: normal bowel sounds General: Yes no CVA tenderness Back/Spine/Pelvis Other: (+) few faint residual scars/lesions over the left mid thoracic area Back: no CVA tenderness Thoracic/Lumbar Spine: thoracic and lumbar spine normal to inspection Skin Other: (+) few faint residual scars/lesions over the left mid thoracic area; no tenderness noted on palpation Rashes: no rashes Neuro General: patient oriented x3, moves all extremities, no focal motor deficits and CN's II-XI intact bilaterally Cranial nerves: Yes Equal, round and reactive pupils present Cognition (Neuro): normal cognition Gait exam (Neuro): Normal gait present Extrem General: Yes no clubbing, cyanosis or edema Assessment and Plan Assessment & Plan (1) Annual physical exam: Code(s): Z00.00 - Encounter for general adult medical examination without abnormal findings Plan: Check labs TYLER - patient was not able to get his previously ordered labs last year done (2) Lyme disease: Code(s): A69.20 - Lyme disease, unspecified Plan: S/P Tx with oral Doxycycline He is reminded to continue to take proper precautions to minimize exposure to ticks since we live in an area where Lyme disease is endemic (3) Insomnia: Code(s): G47.00 - Insomnia, unspecified Qualifiers: Insomnia type: unspecified Qualified Code(s): G47.00 - Insomnia, unspecified Plan: Sleep hygiene reinforced He is currently smoking marijuana 'sometimes' to help him sleep, but states that this does not always help He has tried OTC Melatonin in the past with no improvement Advised that his issues with sleep may actually be due to problems with anxiety and if this persist, we may need to look into this further Plan To return in 1 year for his next annual physical examination Orders: Orders Complete Blood Count Auto Diff Today Z00.00 - Encounter for general adult medical examination without abnormal findings TSH reflex Free T4 Today E78.00 - Pure hypercholesterolemia, unspecified, Z00.00 - Encounter for general adult medical examination without abnormal findings UA CC w/rflx Micro + Cult Today R30.0 - Dysuria, Z00.00 - Encounter for general adult medical examination without abnormal findings Vitamin D 25-OH Total Today E55.9 - Vitamin D deficiency, unspecified, Z00.00 - Encounter for general adult medical examination without abnormal findings Comprehensive [place]. Panel Fast Today Z00.00 - Encounter for general adult medical examination without abnormal findings Lipid Panel Today E78.00 - Pure hypercholesterolemia, unspecified, Z00.00 - Encounter for general adult medical examination without abnormal findings Coding Level of Care Code Est Pt Prev Care 40-64y(65137) Diagnoses Annual physical exam Z00.00 Lyme disease A69.20 Insomnia, unspecified type G47.00 Insomnia type: unspecified
== END 2023-10-07 11:29 | disposition home or self-care (01) ==
PROVIDERS: Visit Provider Internal Medicine
DX: Z00.00 Encounter for general adult medical examination without abnormal findings (principal); A69.20 Lyme disease, unspecified; G47.00 Insomnia, unspecified
CPT/HCPCS: 99396

== ENCOUNTER 2023-10-08 08:06 | Outpatient (REF) | payer OTHER, SELFPAY ==
[2023-10-08 08:17] LABS: MANUAL DIFF FLAG NO
[2023-10-08 08:50] LABS: Basophils Absolute Auto 0.1 X10*3/uL (0.0-0.2); Basophils Percent Auto 0.9 % (0-2); Eosinophils Absolute Auto 0.5 X10*3/uL (0.0-0.4); Eosinophils Percent Auto 7.2 % (0-4); Hematocrit 49.7 % (42.0-52.0); Hemoglobin 16.5 g/dl (14.0-18.0); Imm Gran Abs Auto 0.01 X10*3/uL (0.00-0.03); Imm Gran Pct Auto 0.1 % (0.0-0.4); Lymphocytes Absolute Auto 2.1 X10*3/uL (1.2-4.9); Lymphocytes Percent Auto 30.9 % (20-40); Mean Corpuscular HGB Conc 33.2 g/dl (31.0-36.0); Mean Corpuscular Hemoglobin 29.9 pg (27.0-33.0); Mean Platelet Volume 9.4 fL (9.4-12.4); Monocytes Absolute Auto 0.7 X10*3/uL (0.1-1.2); Monocytes Percent Auto 9.9 % (2-11); Neutrophils Absolute Auto 3.4 x10*3/uL (2.0-8.3); Platelet Count 339 X10*3/uL (160-400); Red Blood Count 5.52 X10*6/uL (4.60-5.80); Red Cell Distribution Width 12.2 % (11.0-16.0); White Blood Count 6.7 X10*3/uL (4.8-10.8)
[2023-10-08 08:58] LABS: Appearance Urine Clear; Color Urine Yellow; Glucose Urine UA Negative (Negative); Leukocyte Esterase Urine Negative (Negative); Nitrite Urine Negative (Negative); PH 7.5 (5.0-9.0); Specific Gravity - Urine 1.025 (1.005-1.025); UMIC TRIGGER UACC YES; Urine Blood Trace (Negative); Urine Ketones Negative (Negative); Urine Protein Trace mg/dL (Neg-Trace)
[2023-10-08 09:03] LABS: Bacteria Urine None Seen (None Seen); Hyaline Casts Urine 0-2 /LPF (0-2); Squamous Epithelial Cell Urine 0-2 /HPF (0-2); WBC Urine 0-5 /HPF (0-5)
[2023-10-08 09:30] LABS: Alanine Aminotransferase 28 U/L (0-40); Albumin Level 4.7 g/dL (3.5-5.0); Alkaline Phosphatase 72 U/L (39-117); Anion Gap 13 (12-20); Aspartate Amino Transferase 27 U/L (5-37); Bilirubin Total 1.9 mg/dL (0.0-1.0); Blood Urea Nitrogen 10 mg/dL (9-16); Calcium 9.9 mg/dL (8.4-10.2); Carbon Dioxide 27 mmol/L (22-29); Chloride 106 mmol/L (96-108); Cholesterol 148 mg/dL (<200); Estimated Glomerular Filt Rate > 60; Glucose Fasting 98 mg/dL (60-99); HDL Cholesterol 63 mg/dL (>40); LDL Cholesterol Calculated 75 mg/dL (<100); Potassium 4.6 mmol/L (3.3-5.1); Sodium 141 mmol/L (135-145); Total Protein 7.5 g/dL (6.5-8.0); Triglycerides 54 mg/dL (<150)
[2023-10-08 09:36] LABS: TSH reflex Free T4 2.39 uIU/mL (0.32-4.0); Vitamin D 25-OH Total 79.5 ng/mL (>30)
== END 2023-10-08 08:07 | disposition home or self-care (01) ==
LOC: HO.LAB 08:06
PROVIDERS: PCP Internal Medicine; Visit Provider Internal Medicine
DX: Z00.00 Encounter for general adult medical examination without abnormal findings (principal); E78.00 Pure hypercholesterolemia, unspecified; E55.9 Vitamin D deficiency, unspecified; R30.0 Dysuria
CPT/HCPCS: 36415; 80053; 80061; 81001; 81003; 82306; 84443; 85025

== ENCOUNTER 2023-12-23 13:08 | Outpatient (AMB) | payer OTHER, SELFPAY ==
[2023-12-23 13:11] VITALS: BP 116/68; PULSE 60; O2SAT 97; BMI 23.0
--- NOTE | 2023-12-23 13:11 | MHC.PC.OV ---
Vital Signs 12/23/23 13:11 Height 6 ft Weight 169 lb 6 oz BMI 23.0 BP 116/68 Blood Pressure Location Lt brachial Position Sitting Pulse 60 Pulse Source Pulse Oximeter Pulse Oximetry (%) 97 Oxygen Delivery Method Room Air Intake Visit Reasons: Growth on arm cyst like Practice Managers Required: No Accompanied by: Self / Same As Patient Allergies No Known Allergies Allergy (Verified 12/23/23 13:58) Medication List - Last Reconciled 12/23/23 by Chi Mcgee MD ibuprofen 800 mg PO Q8H omeprazole 20 mg PO DAILY Tobacco use date assessed: 12/23/23 Dental Screening Dental Screen Date: 12/23/23 Did you have a dental visit in the last 12 months?: Yes Did you have a dental problem in the last 6 months where you did not have access to dental care?: No Was dental information given to patient?: Patient has dentist HPI Growth on arm cyst like HPI Details Patient comes in today for evaluation of a cyst on his left upper arm that he states has been present for at least a couple of years now but he just keeps forgetting to mention it whenever he is here at the office for his appointment States that the cyst appears to be the same in size and has not gotten any bigger over the years, and that it does not hurt or itch He is wondering if this is something that he should be concerned about and if he should have it removed and biopsied or not He would also like to go over the details of his labs done a couple of months ago He otherwise has no other acute issues or concerns at this point [facility] Medical History Insomnia Lyme disease History of pericarditis Surgical History Hx of colonoscopy Social History Housing: Apartment Patient Tobacco Use Status: Never used Tobacco e-Cigarette/Vaping Use: Never Used Second Hand Smoke Exposure: No Substance Use Type: Marijuana service: No Current occupational status: other Current occupation: Self Employed. Cognitive needs: No Hearing needs: No Vision needs: No Questionnaire PHQ-9 Over the last 2 weeks, how often have you been bothered by any of the following problems? 1. Little interest or pleasure in doing things: not at all 2. Feeling down, depressed, or hopeless: not at all 3. Trouble falling or staying asleep, or sleeping too much: not at all 4. Feeling tired or having little energy: not at all 5. Poor appetite or overeating: not at all 6. Feeling bad about yourself - or that you are a failure or have let yourself or your family down: not at all 7. Trouble concentrating on things, such as reading the newspaper or watching television: not at all 8. Moving or speaking so slowly that other people could have noticed. Or the opposite - being so fidgety or restless that you have been moving around a lot more than usual: not at all 9. Thoughts that you would be better off or of hurting yourself in some way: not at all Total score: 0 Depression Screening Interpretation: Negative Depression Screening Done: Yes 19702 - PHQ-9 Billing: Yes Source: Developed by Drs. Pool Tang, Monica Coates, Aden Hunter and colleagues, with an educational jenn from [employer]. Thrive Questionnaire Date Thrive assessed: 12/23/23 I am a: Patient What is your living situation today?: I have a steady place to live Within the past 12 months, did the food you bought not last and you didn't have the money to get more?: Never true Within the past 12 months, did you worry whether your food would run out before you got money to buy more?: Never true Do you have trouble paying for medicines?: No Do you have trouble getting transportation to medical appointments?: No Do you have trouble paying your heating and electricity bill?: No Do you have trouble taking care of your child, family member or friend?: No Do you have trouble with day-to-day activities such as bathing, preparing meals, shopping, managing finances, etc.?: No Are you currently unemployed and looking for a job?: No Are you interested in more education?: No Please select the resources that you would like help with: None Currently or been in a relationship where the following occur: no concerns reported THRIVE Score: 0 AUDIT C Alcohol Use Questionnaire (AUDIT-C) 1. How often do you have a drink containing alcohol?: Never Total Score: 0 Score Reviewed/Action Taken: Yes LIGIA-7 AMB Questionnaire LIGIA-7 Date LIGIA - 7 assessed: 12/23/23 Feeling nervous, anxious, or on edge: 0 = Not at all Not being able to stop or control worryin = Not at all Worrying too much about different things: 0 = Not at all Trouble relaxin = Not at all Being so restless that it is hard to sit still: 0 = Not at all Becoming easily annoyed or irritable: 0 = Not at all Feeling afraid as if something awful might happen: 0 = Not at all Total LIGIA-7 score (0-4 normal; 5-9 mild; 10-14 moderate; 15-21 severe): 0 Source: Developed by Drs. Pool Tang, Monica Coates, Aden Hunter and colleagues, with an educational jenn from [employer]. Review of Systems Const Denies fatigue and Denies headache(s) ENT Denies dizziness, Denies headache(s) and Denies sore throat Card Denies chest pain and Denies dyspnea Resp Denies cough and Denies dyspnea GI Denies abdominal pain, Denies change in bowel habits, Denies nausea and Denies vomiting Skin/Breast Details: (+) non-tender small cyst over the left upper arm posterolaterally Neuro Denies dizziness and Denies headache(s) Endo Denies fatigue Physical exam (Primary Care) Vital Signs: Last Vital Signs Pulse 60 12/23/23 13:11 BP 116/68 12/23/23 13:11 Pulse Ox 97 12/23/23 13:11 Oxygen Delivery Method Room Air 12/23/23 13:11 BMI result Body Mass Index 23.0 Tobacco/Smoking Status: Tobacco use Status Tobacco use date assessed 12/23/23 12/23/23 13:13 Patient Tobacco Use Status Never used Tobacco 12/23/23 13:13 Tobacco use type 10/07/23 11:29 e-Cigarette/Vaping Use Never Used 12/23/23 13:13 PHQ-9: PHQ-9 Score PHQ-9: Total score 0 12/23/23 13:24 Depression Screening Interpretation: Negative Thrive Assessment: Date of Thrive Assessment Date Thrive assessed 12/23/23 12/23/23 13:13 Currently or been in a relationship where the following occur: no concerns reported Const General: no acute distress and alert Neck Neck: Yes no lymphadenopathy and Yes supple Resp Auscultation: clear to auscultation bilaterally Cardio Rate: regular rate Rhythm: regular rhythm Heart sounds: no murmurs GI Palpation (GI): Soft to palpation and nontender Skin Other: (+) small, non-tender, firm cyst over the posterolateral aspect of the left upper arm Extrem General: Yes no clubbing, cyanosis or edema Results Reviewed Results Reviewed: Laboratory Tests 10/08/23 10/08/23 10/08/23 08:14 08:15 08:15 WBC 6.7 Hgb 16.5 D Hct 49.7 D Plt Count 339 D Sodium 141 Potassium 4.6 Creatinine 1.03 Estimated GFR > 60 Fasting Glucose 98 Calcium 9.9 D Total Bilirubin 1.9 H AST 27 ALT 28 Triglycerides 54 Cholesterol 148 LDL Cholesterol, Calc 75 HDL Cholesterol 63 25-OH Vitamin D Total 79.5 TSH 2.39 Ur Specific Hickman 1.025 Urine Protein Trace Urine Glucose (UA) Negative Urine Blood Trace H Urine Nitrite Negative Ur Leukocyte Esterase Negative Assessment and Plan Assessment & Plan (1) Epidermoid cyst: Code(s): L72.0 - Epidermal cyst Plan: Patient is reassured that the cyst he has on his left upper arm appears to be an epidermoid cyst, which is benign and harmless, and may sometime sgo away on their own with time Advised that surgical excision is an option and if he really wants to have it removed, we can refer him to surgery for this but insurance may not necessarily cover the surgery especially since it does not appear to be causing any symptoms or bothering him Patient agrees to hold off on referral for now and will just continue to keep an eye on it and will call for any changes Plan We have also reviewed and discussed the results of his labs done a couple of months ago with him and advised that his labs have all come back within acceptable results To return in October 2024 for his next annual physical exam Coding Level of Care Code Est Pt Level 3 (49085) Diagnoses Epidermoid cyst L72.0
== END 2023-12-23 13:55 | disposition home or self-care (01) ==
PROVIDERS: PCP Internal Medicine; Visit Provider Internal Medicine
DX: L72.0 Epidermal cyst (principal)
CPT/HCPCS: 99213

== ENCOUNTER 2024-10-08 10:07 | Outpatient (AMB) | payer OTHER, SELFPAY ==
[2024-10-08 10:08] VITALS: BP 110/72; PULSE 64; O2SAT 97; BMI 23.5
--- NOTE | 2024-10-08 10:08 | A.OFFPC_ITS ---
Vital Signs 10/08/24 10:08 Height 6 ft Weight 173 lb 6 oz BMI 23.5 BP 110/72 Blood Pressure Location Lt brachial Position Sitting Pulse 64 Pulse Source Pulse Oximeter Pulse Oximetry (%) 97 Oxygen Delivery Method Room Air Intake Visit Reasons: ANNUAL Anesthesia Technician Required: No Accompanied by: Self / Same As Patient Allergies No Known Allergies Allergy (Verified 10/08/24 10:24) Medication List - Last Reconciled 10/08/24 by Chi Mcgee MD ibuprofen 800 mg PO Q8H PRN multivitamin (Daily Multi-Vitamin tablet) 1 tab PO DAILY Tobacco use date assessed: 10/08/24 Dental Screening Dental Screen Date: 10/08/24 Did you have a dental visit in the last 12 months?: No Did you have a dental problem in the last 6 months where you did not have access to dental care?: No Was dental information given to patient?: No HPI ANNUAL HPI Details Patient comes in today for her annual physical examination States that he feels okay He denies any headaches or dizziness Denies any chest pains, no SOB No nausea/vomiting, no abdominal pain No change in bowel habits noted He denies any acute urinary symptoms He still has the epidermoid cyst on his left upper arm from before - states that it looks to be about the same size and has not really gotten bigger but he now wants to see if it can be removed [facility] Medical History (Updated 10/08/24 @ 12:34 by Chi Mcgee MD) Insomnia Lyme disease History of pericarditis Surgical History Hx of colonoscopy Social History Housing: Apartment Patient Tobacco Use Status: Never used Tobacco e-Cigarette/Vaping Use: Never Used Second Hand Smoke Exposure: No Substance Use Type: Marijuana service: No Current occupational status: other Current occupation: Self Employed. Cognitive needs: No Hearing needs: No Vision needs: No Questionnaire PHQ-9 Over the last 2 weeks, how often have you been bothered by any of the following problems? 1. Little interest or pleasure in doing things: not at all 2. Feeling down, depressed, or hopeless: not at all 3. Trouble falling or staying asleep, or sleeping too much: not at all 4. Feeling tired or having little energy: not at all 5. Poor appetite or overeating: not at all 6. Feeling bad about yourself - or that you are a failure or have let yourself or your family down: not at all 7. Trouble concentrating on things, such as reading the newspaper or watching television: not at all 8. Moving or speaking so slowly that other people could have noticed. Or the opposite - being so fidgety or restless that you have been moving around a lot more than usual: not at all 9. Thoughts that you would be better off or of hurting yourself in some way: not at all Total score: 0 Depression Screening Interpretation: Negative Depression Screening Done: Yes 05248 - PHQ-9 Billing: Yes Source: Developed by Drs. Pool Tang, Monica Coates, Aden Hunter and colleagues, with an educational jenn from [employer]. Thrive Questionnaire Date Thrive assessed: 10/08/24 I am a: Patient What is your living situation today?: I have a steady place to live Within the past 12 months, did the food you bought not last and you didn't have the money to get more?: Never true Within the past 12 months, did you worry whether your food would run out before you got money to buy more?: Never true Do you have trouble paying for medicines?: No Do you have trouble getting transportation to medical appointments?: No Do you have trouble paying your heating and electricity bill?: No Do you have trouble taking care of your child, family member or friend?: No Do you have trouble with day-to-day activities such as bathing, preparing meals, shopping, managing finances, etc.?: No Are you currently unemployed and looking for a job?: No Are you interested in more education?: No Please select the resources that you would like help with: None Currently or been in a relationship where the following occur: No concerns reported THRIVE Score: 0 AUDIT C Alcohol Use Questionnaire (AUDIT-C) 1. How often do you have a drink containing alcohol?: Monthly or less 2. How many drinks containing alcohol do you have on a typical day when you are drinking?: 1 or 2 3. How often do you have six or more drinks on one occasion?: Never Total Score: 1 Score Reviewed/Action Taken: Yes LIGIA-7 AMB Questionnaire LIGIA-7 Date LIGIA - 7 assessed: 10/08/24 Feeling nervous, anxious, or on edge: 1 = Several days Not being able to stop or control worryin = Several days Worrying too much about different things: 1 = Several days Trouble relaxin = More than half the days Being so restless that it is hard to sit still: 1 = Several days Becoming easily annoyed or irritable: 1 = Several days Feeling afraid as if something awful might happen: 1 = Several days Total LIGIA-7 score (0-4 normal; 5-9 mild; 10-14 moderate; 15-21 severe): 8 Source: Developed by Drs. Pool Tang, Monica Coates, Aden Hunter and colleagues, with an educational jenn from [employer]. Review of Systems Const Denies chills, Denies fatigue, Denies fever(s), Denies headache(s), Denies malaise and Denies weakness Eyes Denies blurry vision, Denies change in vision, Denies irritation and Denies itchy eyes ENT Denies dysphagia, Denies dizziness, Denies otalgia, Denies headache(s), Denies nasal congestion, Denies neck pain, Denies odynophagia and Denies sore throat Card Denies chest pain, Denies rapid heart rate, Denies irregular heart rhythm, Denies palpitations and Denies dyspnea Resp Denies chest congestion, Denies cough, Denies dyspnea and Denies wheezing GI Denies abdominal pain, Denies bloating, Denies constipation, Denies dysphagia, Denies heartburn, Denies diarrhea, Denies nausea, Denies odynophagia and Denies vomiting Denies hematuria, Denies difficulty urinating, Denies dysuria, Denies urinary frequency and Denies urinary urgency Musc Denies back pain, Denies arthralgias, Denies joint swelling, Denies muscle weakness and Denies neck pain Skin/Breast Denies change in pigmentation, Reports lesions ((+) non-tender cyst on his left upper arm), Denies rash and Denies unusual bruising Neuro Denies dizziness, Denies headache(s), Denies paresthesias and Denies weakness Endo Denies fatigue and Denies palpitations Aller/Immun Denies itchy eyes and Denies wheezing Physical exam (Primary Care) Vital Signs: Last Vital Signs Pulse 64 10/08/24 10:08 BP 110/72 10/08/24 10:08 Pulse Ox 97 10/08/24 10:08 Oxygen Delivery Method Room Air 10/08/24 10:08 BMI result Body Mass Index 23.5 Tobacco/Smoking Status: Tobacco use Status Tobacco use date assessed 10/08/24 10/08/24 10:13 Patient Tobacco Use Status Never used Tobacco 10/08/24 10:13 Tobacco use type 10/07/23 11:29 e-Cigarette/Vaping Use Never Used 10/08/24 10:13 PHQ-9: PHQ-9 Score PHQ-9: Total score 0 10/08/24 10:34 Depression Screening Interpretation: Negative Thrive Assessment: Date of Thrive Assessment Date Thrive assessed 10/08/24 10/08/24 10:13 Currently or been in a relationship where the following occur: No concerns reported Const General: no acute distress, alert and awake Orientation/consciousness: patient oriented x3 HENMT Head: Yes normocephalic and Yes atraumatic Ears: external ears normal, TM's normal bilaterally and EAC's normal General nose exam: No nasal discharge present Face and sinus: Yes normal facial exam and Yes sinuses nontender Teeth and gingiva: dentition normal Throat: Yes posterior oropharynx normal and Yes tonsils normal (no TP congestion) Eyes Eyelids: Yes eyelids normal Conjunctivae: conjunctivae normal Pupils: Equal, round and reactive pupils present EOM: EOMs intact bilaterally Neck Neck: Yes no lymphadenopathy and Yes supple Thyroid: Thyroid normal Resp Auscultation: clear to auscultation bilaterally, no rales and no wheezes Cardio Rate: regular rate Rhythm: regular rhythm Heart sounds: no murmurs GI Palpation (GI): Soft to palpation, nontender and No hepatosplenomegaly present Auscultation: normal bowel sounds General: Yes no CVA tenderness Back/Spine/Pelvis Back: no CVA tenderness Thoracic/Lumbar Spine: thoracic and lumbar spine normal to inspection Skin Other: (+) soft, non-tender cyst on the posterolateral aspect of the proximal left upper arm Rashes: no rashes Neuro General: patient oriented x3, moves all extremities, no focal motor deficits and CN's II-XI intact bilaterally Cranial nerves: Yes Equal, round and reactive pupils present Cognition (Neuro): normal cognition Gait exam (Neuro): Normal gait present Extrem General: Yes no clubbing, cyanosis or edema Coding Level of Care Code Est Pt Prev Care 40-64y(29778) Diagnoses Annual physical exam Z00.00 History of Lyme disease Z86.19 Insomnia, unspecified type G47.00 Insomnia type: unspecified Epidermoid cyst L72.0 Colon cancer screening Z12.11 Additional Codes PHQ-9 - 30204 - PHQ-9 Billing: Yes ([id number]) Assessment & Plan Assessment & Plan (1) Annual physical exam: Code(s): Z00.00 - Encounter for general adult medical examination without abnormal findings Category: Medical Plan: Check labs He is also now due to start colon cancer screening and will be referred for this (2) History of Lyme disease: Code(s): Z86.19 - Personal history of other infectious and parasitic diseases Plan: S/P treatment with Doxycycline - patient has had no pertinent symptoms or issues since He is again reminded to continue to take proper precautions to minimize exposure to ticks since we live in an area where Lyme disease is endemic (3) Insomnia: Code(s): G47.00 - Insomnia, unspecified Category: Medical Qualifiers: Insomnia type: unspecified Qualified Code(s): G47.00 - Insomnia, unspecified Plan: Sleep hygiene reinforced He has smoked marijuana 'sometimes' to help him sleep, but states that this does not always help He has tried OTC Melatonin in the past with no improvement States that he would like to continue with natural remedies for now and does not wish to start taking any prescription meds for sleep Advised again that his issues with sleep may actually be due to anxiety and if this persists, we can need to look into this further if he wants (4) Epidermoid cyst: Code(s): L72.0 - Epidermal cyst Category: Medical Plan: Will refer him to surgery for consideration for excision of the cyst on his left upper arm (5) Colon cancer screening: Code(s): Z12.11 - Encounter for screening for malignant neoplasm of colon Category: Medical Plan: Will refer him to GI to start his screening colonoscopy Plan He is also advised to think about getting a flu shot - states that he will consider this and get his flu shot if he decides to get one To return in 1 year for his next annual physical examination Orders: Orders Complete Blood Count Auto Diff Today Chi Mcgee MD D64.9 - Anemia, unspecified, Z00.00 - Encounter for general adult medical examination without abnormal findings Comprehensive [place]. Panel Fast Today Chi Mcgee MD E78.00 - Pure hypercholesterolemia, unspecified, Z00.00 - Encounter for general adult medical examination without abnormal findings Lipid Panel Today Chi Mcgee MD E78.00 - Pure hypercholesterolemia, unspecified, Z00.00 - Encounter for general adult medical examination without abnormal findings TSH reflex Free T4 Today Chi Mcgee MD E78.00 - Pure hypercholesterolemia, unspecified, Z00.00 - Encounter for general adult medical examination without abnormal findings UA CC w/rflx Micro + Cult Today Chi Mcgee MD R30.0 - Dysuria, Z00.00 - Encounter for general adult medical examination without abnormal findings Vitamin D 25-OH Total Today Chi Mcgee MD E55.9 - Vitamin D deficiency, unspecified, Z00.00 - Encounter for general adult medical examination without abnormal findings Referrals General Surgery Referral Chi Mcgee MD L72.0 - Epidermal cyst Gastroenterology Referral Chi Mcgee MD Z12.11 - Encounter for screening for malignant neoplasm of colon Medications: Changed From ibuprofen 800 mg PO Q8H 30 tabs 0RF pain To ibuprofen 800 mg PO Q8H PRN Barrett Bean MD
== END 2024-10-08 10:42 | disposition home or self-care (01) ==
PROVIDERS: PCP Internal Medicine; Visit Provider Internal Medicine
DX: Z00.00 Encounter for general adult medical examination without abnormal findings (principal); Z86.19 Personal history of other infectious and parasitic diseases; G47.00 Insomnia, unspecified; L72.0 Epidermal cyst; Z12.11 Encounter for screening for malignant neoplasm of colon

== ENCOUNTER → 2024-10-08 10:07 | Outpatient (BNVA) | payer OTHER, SELFPAY | PROVIDERS: PCP Internal Medicine; Visit Provider Internal Medicine | DX: Z00.00 Encounter for general adult medical examination without abnormal findings (principal); L72.0 Epidermal cyst; G47.00 Insomnia, unspecified; Z86.19 Personal history of other infectious and parasitic diseases | CPT/HCPCS: 96127; 99396 ==

== ENCOUNTER 2024-10-21 11:07 | Outpatient (REF) | payer OTHER, SELFPAY ==
[2024-10-21 11:18] LABS: MANUAL DIFF FLAG NO
[2024-10-21 11:50] LABS: Basophils Absolute Auto 0.1 X10*3/uL (0.0-0.2); Basophils Percent Auto 0.9 % (0-2); Eosinophils Absolute Auto 0.4 X10*3/uL (0.0-0.4); Eosinophils Percent Auto 7.3 % (0-4); Hematocrit 45.7 % (42.0-52.0); Hemoglobin 15.5 g/dl (14.0-18.0); Imm Gran Abs Auto 0.01 X10*3/uL (0.00-0.03); Imm Gran Pct Auto 0.2 % (0.0-0.4); Lymphocytes Absolute Auto 1.4 X10*3/uL (1.2-4.9); Lymphocytes Percent Auto 25.2 % (20-40); Mean Corpuscular HGB Conc 33.9 g/dl (31.0-36.0); Mean Corpuscular Hemoglobin 30.2 pg (27.0-33.0); Mean Corpuscular Volume 89.1 fL (80.0-98.0); Mean Platelet Volume 9.5 fL (9.4-12.4); Monocytes Absolute Auto 0.4 X10*3/uL (0.1-1.2); Monocytes Percent Auto 8.2 % (2-11); Neutrophils Absolute Auto 3.1 x10*3/uL (2.0-8.3); Neutrophils Percent Auto 58.2 % (45-73); Platelet Count 270 X10*3/uL (160-400); Red Blood Count 5.13 X10*6/uL (4.60-5.80); Red Cell Distribution Width 12.5 % (11.0-16.0); White Blood Count 5.4 X10*3/uL (4.8-10.8)
[2024-10-21 12:17] LABS: Appearance Urine Clear; Color Urine Yellow; Glucose Urine UA Negative (Negative); Leukocyte Esterase Urine Negative (Negative); Nitrite Urine Negative (Negative); PH >= 9.0 (5.0-9.0); UMIC TRIGGER UACC YES; Urine Blood Trace (Negative); Urine Ketones Negative (Negative); Urine Protein Trace mg/dL (Neg-Trace)
[2024-10-21 12:22] LABS: Bacteria Urine None Seen (None Seen); Hyaline Casts Urine 0-2 /LPF (0-2); Squamous Epithelial Cell Urine 0-2 /HPF (0-2); WBC Urine 0-5 /HPF (0-5)
[2024-10-21 12:40] LABS: Alanine Aminotransferase 51 U/L (0-40); Albumin Level 4.3 g/dL (3.5-5.0); Alkaline Phosphatase 71 U/L (39-117); Anion Gap 7 (12-20); Aspartate Amino Transferase 35 U/L (5-37); Bilirubin Total 1.8 mg/dL (0.0-1.0); Blood Urea Nitrogen 11 mg/dL (9-16); Calcium 9.3 mg/dL (8.4-10.2); Carbon Dioxide 29 mmol/L (22-29); Chloride 109 mmol/L (96-108); Cholesterol 146 mg/dL (<200); Estimated Glomerular Filt Rate > 60; Glucose Fasting 97 mg/dL (60-99); HDL Cholesterol 58 mg/dL (>40); LDL Cholesterol Calculated 78 mg/dL (<100); Potassium 4.3 mmol/L (3.3-5.1); Sodium 141 mmol/L (135-145); Total Protein 6.9 g/dL (6.5-8.0); Triglycerides 53 mg/dL (<150)
[2024-10-21 12:56] LABS: TSH reflex Free T4 1.41 uIU/mL (0.32-4.0); Vitamin D 25-OH Total 26.9 ng/mL (>30)
== END 2024-10-21 11:08 | disposition home or self-care (01) ==
LOC: HO.LAB 11:07
PROVIDERS: PCP Internal Medicine; Visit Provider Internal Medicine
DX: Z00.00 Encounter for general adult medical examination without abnormal findings (principal); D64.9 Anemia, unspecified; E78.00 Pure hypercholesterolemia, unspecified; E55.9 Vitamin D deficiency, unspecified
CPT/HCPCS: 36415; 80053; 80061; 81001; 81003; 82306; 84443; 85025

== ENCOUNTER 2025-10-17 09:22 | Outpatient (AMB) | payer OTHER, SELFPAY ==
[2025-10-17 09:32] VITALS: BP 116/74; PULSE 55; O2SAT 97; BMI 24.3
--- NOTE | 2025-10-17 09:32 | MHC.PC.OV ---
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 Accompanied by: Self / Same As Patient Allergies No Known Allergies Allergy (Verified 10/17/25 09:51) Medication List - Last Reconciled 10/17/25 by Chi Mcgee MD ibuprofen 800 mg PO Q8H PRN multivitamin (Daily Multi-Vitamin tablet) 1 tab PO DAILY Tobacco use date assessed: 10/17/25 Dental Screening Dental Screen Date: 10/17/25 Did you have a dental visit in the last 12 months?: No Did you have a dental problem in the last 6 months where you did not have access to dental care?: No Was dental information given to patient?: Patient has dentist HPI pe HPI Details Patient comes in today for his annual physical examination States that he feels okay He denies any headaches or dizziness Denies any chest pains, no SOB No nausea/vomiting, no abdominal pain No change in bowel habits noted He denies any acute urinary symptoms PFSH Medical History (Updated 10/17/25 @ 12:03 by Chi Mcgee MD) Vitamin D deficiency Insomnia Lyme disease History of pericarditis Surgical History Hx of colonoscopy Social History Housing: Apartment Patient Tobacco Use Status: Never used Tobacco e-Cigarette/Vaping Use: Never Used Second Hand Smoke Exposure: No Substance Use Type: Marijuana service: No Current occupational status: other Current occupation: Self Employed. Cognitive needs: No Hearing needs: No Vision needs: No Questionnaire PHQ-9 Over the last 2 weeks, how often have you been bothered by any of the following problems? 1. Little interest or pleasure in doing things: not at all 2. Feeling down, depressed, or hopeless: not at all 3. Trouble falling or staying asleep, or sleeping too much: several days 4. Feeling tired or having little energy: not at all 5. Poor appetite or overeating: not at all 6. Feeling bad about yourself - or that you are a failure or have let yourself or your family down: several days 7. Trouble concentrating on things, such as reading the newspaper or watching television: several days 8. Moving or speaking so slowly that other people could have noticed. Or the opposite - being so fidgety or restless that you have been moving around a lot more than usual: not at all 9. Thoughts that you would be better off or of hurting yourself in some way: not at all Total score: 3 Depression Screening Interpretation: Positive Depression Screening Follow-up: Follow-up Visit Requested Depression Screening Done: Yes 46613 - PHQ-9 Billing: Yes Source: Developed by Drs. Pool Tang, Monica Coates, Aden Hunter and colleagues, with an educational jenn from [employer]. Thrive Questionnaire Date Thrive assessed: 10/17/25 I am a: Patient What is your living situation today?: I have a steady place to live Within the past 12 months, did the food you bought not last and you didn't have the money to get more?: Sometimes True Within the past 12 months, did you worry whether your food would run out before you got money to buy more?: Sometimes True Do you have trouble paying for medicines?: No Do you have trouble getting transportation to medical appointments?: No Do you have trouble paying your heating and electricity bill?: No Do you have trouble taking care of your child, family member or friend?: No Do you have trouble with day-to-day activities such as bathing, preparing meals, shopping, managing finances, etc.?: No Are you currently unemployed and looking for a job?: No Are you interested in more education?: No Please select the resources that you would like help with: None Currently or been in a relationship where the following occur: No concerns reported THRIVE Score: 2 AUDIT C Alcohol Use Questionnaire (AUDIT-C) 1. How often do you have a drink containing alcohol?: Monthly or less 2. How many drinks containing alcohol do you have on a typical day when you are drinking?: 1 or 2 3. How often do you have six or more drinks on one occasion?: Never Total Score: 1 Score Reviewed/Action Taken: Yes LIGIA-7 AMB Questionnaire LIGIA-7 Date LIGIA - 7 assessed: 10/17/25 Feeling nervous, anxious, or on edge: 1 = Several days Not being able to stop or control worryin = Several days Worrying too much about different things: 1 = Several days Trouble relaxin = Several days Being so restless that it is hard to sit still: 2 = More than half the days Becoming easily annoyed or irritable: 1 = Several days Feeling afraid as if something awful might happen: 1 = Several days Total LIGIA-7 score (0-4 normal; 5-9 mild; 10-14 moderate; 15-21 severe): 8 Source: Developed by Drs. Pool Tang, Monica Coates, Aden Hunter and colleagues, with an educational jenn from [employer]. Review of Systems Const Denies chills, Denies fatigue, Denies fever(s), Denies headache(s), Denies malaise and Denies weakness Eyes Denies blurry vision, Denies change in vision, Denies irritation and Denies itchy eyes ENT Denies dysphagia, Denies dizziness, Denies otalgia, Denies headache(s), Denies nasal congestion, Denies neck pain, Denies odynophagia and Denies sore throat Card Denies rapid heart rate, Denies irregular heart rhythm, Denies palpitations and Denies dyspnea Resp Denies chest congestion, Denies cough, Denies dyspnea and Denies wheezing GI Denies abdominal pain, Denies bloating, Denies constipation, Denies dysphagia, Denies heartburn, Denies diarrhea, Denies nausea, Denies odynophagia and Denies vomiting Denies hematuria, Denies difficulty urinating, Denies dysuria, Denies urinary frequency and Denies urinary urgency Musc Denies back pain, Denies arthralgias, Denies joint swelling, Denies muscle weakness and Denies neck pain Skin/Breast Denies change in pigmentation, Denies lesions, Denies rash and Denies unusual bruising Neuro Denies dizziness, Denies headache(s), Denies paresthesias and Denies weakness Endo Denies fatigue and Denies palpitations Aller/Immun Denies itchy eyes and Denies wheezing Physical exam (Primary Care) Vital Signs: Last Vital Signs Pulse 55 10/17/25 09:32 BP 116/74 10/17/25 09:32 Pulse Ox 97 10/17/25 09:32 Oxygen Delivery Method Room Air 10/17/25 09:32 BMI result Body Mass Index 24.3 Tobacco/Smoking Status: Tobacco use Status Tobacco use date assessed 10/17/25 10/17/25 09:40 Patient Tobacco Use Status Never used Tobacco 10/17/25 09:40 Tobacco use type 10/07/23 11:29 e-Cigarette/Vaping Use Never Used 10/17/25 09:40 PHQ-9: PHQ-9 Score PHQ-9: Total score 3 10/17/25 09:57 Depression Screening Interpretation: Positive Depression Screening Follow-up: Follow-up Visit Requested Thrive Assessment: Date of Thrive Assessment Date Thrive assessed 10/17/25 10/17/25 09:40 Currently or been in a relationship where the following occur: No concerns reported Const General: no acute distress, alert and awake Orientation/consciousness: patient oriented x3 HENMT Head: Yes normocephalic and Yes atraumatic Ears: external ears normal, TM's normal bilaterally and EAC's normal General nose exam: No nasal discharge present Face and sinus: Yes normal facial exam and Yes sinuses nontender Teeth and gingiva: dentition normal Throat: Yes posterior oropharynx normal and Yes tonsils normal (no TP congestion) Eyes Eyelids: Yes eyelids normal Conjunctivae: conjunctivae normal Pupils: Equal, round and reactive pupils present EOM: EOMs intact bilaterally Neck Neck: Yes no lymphadenopathy and Yes supple Thyroid: Thyroid normal Resp Auscultation: clear to auscultation bilaterally, no rales and no wheezes Cardio Rate: regular rate Rhythm: regular rhythm Heart sounds: no murmurs GI Palpation (GI): Soft to palpation, nontender and No hepatosplenomegaly present Auscultation: normal bowel sounds General: Yes no CVA tenderness Back/Spine/Pelvis Back: no CVA tenderness Thoracic/Lumbar Spine: thoracic and lumbar spine normal to inspection Skin Lesions: no lesions Rashes: no rashes Neuro General: patient oriented x3, moves all extremities, no focal motor deficits and CN's II-XI intact bilaterally Cranial nerves: Yes Equal, round and reactive pupils present Cognition (Neuro): normal cognition Gait exam (Neuro): Normal gait present Extrem General: Yes no clubbing, cyanosis or edema Coding Level of Care Code Est Pt Prev Care 40-64y(23980) Diagnoses Annual physical exam Z00.00 Total bilirubin, elevated R17 Elevated LFTs R79.89 Vitamin D deficiency E55.9 Colon cancer screening Z12.11 Additional Codes PHQ-9 - 72819 - PHQ-9 Billing: Yes ([id number]) Assessment & Plan Assessment & Plan (1) Annual physical exam: Code(s): Z00.00 - Encounter for general adult medical examination without abnormal findings Category: Medical Plan: Check labs TYLER to complete his annual exam today He is also now due for screening colonoscopy and he would like to try doing a Cologuard test for now instead of an actual colonoscopy (he did have a colonoscopy done about 20 years ago at age 25 when had rectal bleeding and was diagnosed with possible ulcerative colitis but he's had no problems since) (2) Total bilirubin, elevated: Code(s): R17 - Unspecified jaundice Category: Medical Plan: His total bilirubin level has remained consistently slightly elevated on his labs done over the past few years Will recheck this and check a direct bilirubin level as well for further evaluation and if necessary depending on his results, will consider getting an abdominal US for further evaluation (3) Elevated LFTs: Code(s): R79.89 - Other specified abnormal findings of blood chemistry Category: Medical Plan: His serum ALT was also elevated again on his previous labs done last year Will recheck his LFTs and if they remain elevated or if they are worse, will consider sending him for abdominal US for further evaluation (4) Vitamin D deficiency: Code(s): E55.9 - Vitamin D deficiency, unspecified Category: Medical Plan: Will recheck his Vitamin D level for follow up and if it remains low, will recommend he start taking supplements for this (5) Colon cancer screening: Code(s): Z12.11 - Encounter for screening for malignant neoplasm of colon Category: Medical Plan: Have advised patient that he is now due to start colon cancer screening He's actually had a colonoscopy done about 20 years ago when he was 25 y/o due to rectal bleeding and was diagnosed with possible ulcerative colitis at the time but states that he's had no problems since and would like to try Cologuard testing for now - states that other than the aforementioned incident, he has no increased personal or family risks for colon cancer Cologuard ordered Plan To return in 1 year for his next annual physical examination Orders: Orders Comprehensive [place]. Panel Fast Today E78.00 - Pure hypercholesterolemia, unspecified, Z00.00 - Encounter for general adult medical examination without abnormal findings Lipid Panel Today E78.00 - Pure hypercholesterolemia, unspecified, Z00.00 - Encounter for general adult medical examination without abnormal findings UA CC w/rflx Micro + Cult Today R30.0 - Dysuria, Z00.00 - Encounter for general adult medical examination without abnormal findings Complete Blood Count Auto Diff Today D64.9 - Anemia, unspecified, Z00.00 - Encounter for general adult medical examination without abnormal findings TSH reflex Free T4 Today E78.00 - Pure hypercholesterolemia, unspecified, Z00.00 - Encounter for general adult medical examination without abnormal findings Vitamin D 25-OH Total Today E55.9 - Vitamin D deficiency, unspecified, Z00.00 - Encounter for general adult medical examination without abnormal findings Bilirubin Direct Today R17 - Unspecified jaundice Referrals Cologuard Test Z12.11 - Encounter for screening for malignant neoplasm of colon
== END 2025-10-17 10:03 | disposition home or self-care (01) ==
LOC: HO.HMCH 09:22
PROVIDERS: PCP Internal Medicine; Visit Provider Internal Medicine
DX: Z00.00 Encounter for general adult medical examination without abnormal findings (principal); R17 Unspecified jaundice; R79.89 Other specified abnormal findings of blood chemistry; E55.9 Vitamin D deficiency, unspecified; Z12.11 Encounter for screening for malignant neoplasm of colon

== ENCOUNTER → 2025-10-17 09:22 | Outpatient (BNVA) | payer OTHER, SELFPAY | PROVIDERS: PCP Internal Medicine; Visit Provider Internal Medicine | DX: Z00.00 Encounter for general adult medical examination without abnormal findings (principal); Z12.11 Encounter for screening for malignant neoplasm of colon; R17 Unspecified jaundice; R79.89 Other specified abnormal findings of blood chemistry; E55.9 Vitamin D deficiency, unspecified | CPT/HCPCS: 96127; 99396 ==